=== PATIENT | female | born 1995 | race Caucasian/White ===

== ENCOUNTER 2022-12-18 01:00 | Inpatient (IN) | payer OTHER ==
[2022-12-18] MEDS ORDERED: AMPICILLIN SODIUM 2 GM VIAL ONE (01:56)
[2022-12-18] MEDS ORDERED: AMPICILLIN - 2 GM in SODIUM CHLORIDE 100 ML IVPB ONE (02:00)
[2022-12-18] MEDS ORDERED: ELECTROLYTE-148 SOLN 1,000 ML IV SCH (02:00)
[2022-12-18 02:30] LABS: BASO % 0.5 % (0-2.0); EOS % 0.6 % (0-4.5); HEMATOCRIT 32.4 % (32.4-45.2); HEMOGLOBIN 10.8 GM/dL (10.7-15.3); LYMPH % 24.3 % (8-40); MCH 27.5 pg (25.7-33.7); MCHC 33.4 g/dl (32.0-36.0); MEAN CELL VOLUME 82.3 fl (80-96); MEAN PLT VOLUME 11.1 fl (7.5-11.1); NEUT % 65.6 % (42.8-82.8); PLATELET COUNT 240 10^3/uL (134-434); RBC 3.94 M/mm3 (3.60-5.2); RDW 14.6 % (11.6-15.6); WHITE BLOOD COUNT 11.9 K/mm3 (4.0-10.0)
[2022-12-18 02:37] LABS: INR 0.92 (0.83-1.09); PROTHROMBIN TIME (PATIENT) 10.7 SEC (9.7-13.0)
[2022-12-18 02:39] VITALS: BMI 29.8
[2022-12-18 02:39] LABS: ACTIVATED PTT 25.3 SECONDS (25.2-36.5)
[2022-12-18 02:59] LABS: POTASSIUM 4.1 mmol/L (3.5-5.1)
[2022-12-18 03:01] LABS: BLOOD UREA NITROGEN 10.3 mg/dL (7-18); CALCIUM 8.6 mg/dL (8.5-10.1)
[2022-12-18 03:05] LABS: CREATININE 0.5 mg/dL (0.55-1.3)
[2022-12-18] MEDS ORDERED: OXYTOCIN 20 UNITS in 0.9% NS 20 UNIT/1,000 ML INFUS.BAG IV ONE (03:11)
[2022-12-18] MEDS ORDERED: IBUPROFEN 600 MG TABLET (FP) PO ONE (03:33)
[2022-12-18] MEDS ORDERED: WITCH HAZEL 50% (TUCKS) 40 PAD/JAR PAD TP PRN (03:36)
[2022-12-18] MEDS ORDERED: BENZOCAINE 28 GM HEMORRHOIDAL OINTMENT TP PRN (03:36)
[2022-12-18] MEDS ORDERED: METHYLERGONOVINE MALEATE 0.2 MG/1 ML AMP IM PRN (03:36)
[2022-12-18] MEDS ORDERED: BISACODYL 10 MG SUPP.RECT RC PRN (03:36)
[2022-12-18] MEDS ORDERED: BENZOCAINE 20% 57 GM BOTTLE TP PRN (03:36)
[2022-12-18] MEDS ORDERED: ACETAMINOPHEN 325 MG TABLET (FP) PO PRN (03:36)
[2022-12-18] MEDS ORDERED: oxyCODONE HCL 5 MG TABLET PO PRN (03:36)
[2022-12-18] MEDS: IBUPROFEN 600 MG TABLET (FP) PO PRN ×3 (03:40→21:43)
[2022-12-18] MEDS ORDERED: OXYTOCIN 20 UNITS in 0.9% NS 20 UNIT/1,000 ML INFUS.BAG IV SCH (03:45)
[2022-12-18 05:31] VITALS: RESP 18
[2022-12-18] MEDS ORDERED: AMPICILLIN - 1 GM in SODIUM CHLORIDE 100 ML IVPB SCH (06:00)
[2022-12-18 06:59] LABS: METHADONE, UR NEGATIVE (NEGATIVE); PHENCYCLIDINE,URINE NEGATIVE (NEGATIVE); URINE BARBITURATES NEGATIVE (NEGATIVE); URINE BENZODIAZEPINES NEGATIVE (NEGATIVE)
[2022-12-18 07:00] LABS: COCAINE, UR NEGATIVE (NEGATIVE); OPIATES, URI NEGATIVE (NEGATIVE)
[2022-12-18 07:09] LABS: URINE AMPHETAMINES NEGATIVE (NEGATIVE)
[2022-12-18 10:45] LABS: HIV INTERPRETATION NEGATIVE (NEGATIVE)
[2022-12-18] MEDS: PRENATAL VITAMINS W/ FOLIC ACID TABLET (FP) PO SCH (10:58)
[2022-12-18 14:00] LABS: POC NITRAZINE POS
[2022-12-19 08:30] LABS: BASO % 0.7 % (0-2.0); EOS % 0.9 % (0-4.5); HEMATOCRIT 33.2 % (32.4-45.2); HEMOGLOBIN 11.2 GM/dL (10.7-15.3); LYMPH % 27.7 % (8-40); MCH 28.1 pg (25.7-33.7); MCHC 33.6 g/dl (32.0-36.0); MEAN CELL VOLUME 83.7 fl (80-96); MEAN PLT VOLUME 11.5 fl (7.5-11.1); NEUT % 61.7 % (42.8-82.8); PLATELET COUNT 210 10^3/uL (134-434); RBC 3.97 M/mm3 (3.60-5.2); RDW 14.6 % (11.6-15.6); WHITE BLOOD COUNT 11.8 K/mm3 (4.0-10.0)
[2022-12-19] MEDS: PRENATAL VITAMINS W/ FOLIC ACID TABLET (FP) PO SCH (09:13)
[2022-12-19] MEDS: IBUPROFEN 600 MG TABLET (FP) PO PRN ×2 (12:07→22:18)
[2022-12-19] MEDS ORDERED: SENNOSIDES/DOCUSATE COMBO (SENNA PLUS) TABLET (UD) PO PRN (22:00)
[2022-12-20] MEDS: PRENATAL VITAMINS W/ FOLIC ACID TABLET (FP) PO SCH (09:15)
[2022-12-20 09:23] VITALS: BP 126/73; PULSE 55; TEMP 98.2
[2022-12-20] MEDS: IBUPROFEN 600 MG TABLET (FP) PO PRN (13:44)
== END 2022-12-20 14:25 | disposition home or self-care (01) | DRG 807 ==
LOC: JLDR 01:00 → J3W 04:52
PROVIDERS: ADMIT Obstetrics & Gynecology; ATTEND Obstetrics & Gynecology
PROC: 0HQ9XZZ Repair Perineum Skin, External Approach (ICD-10-PCS; principal; 2022-12-18)
PROC: 10E0XZZ Delivery of Products of Conception, External Approach (ICD-10-PCS; 2022-12-18)
DX: O70.0 First degree perineal laceration during delivery (principal); Z37.0 Single live birth; Z3A.35 35 weeks gestation of pregnancy
CPT/HCPCS: 36415; 80048; 80307; 83986-QW; 85025; 85610; 85730; 86780; 86850; 86900; 86901; 87389; C9803-CS; U0003; U0005